=== PATIENT | female | born 1980 | race Caucasian/White ===

== ENCOUNTER 2018-07-14 11:18 | Day surgery (SDC) | payer OTHER, BC ==
[~2018-07-14] VITALS: Ht 170.2 cm; Wt 104.3 kg
[~2018-07-14 11:18] MED LIST: CEPH500 PO; DOXY100; LEVSOD75 PO
[2018-07-14] MEDS ORDERED: DOXY100 PO (12:59)
[2018-07-14] MEDS ORDERED: MELO7.5 (12:59)
--- NOTE | 2018-07-14 15:55 | NUR ---
07/14/18 1554 Ang Marc PT INTO RECLINER. TOLERATING ORAL INTAKE. NO C/O OF PAIN OR NAUSEA AT THIS THIS TIME.
== END 2018-07-14 16:30 | disposition home or self-care (01) ==
LOC: ORSCSDS 11:18
PROVIDERS: Orthopaedic Surgery
PROC: 0SQC4ZZ Repair Right Knee Joint, Percutaneous Endoscopic Approach (ICD-10-PCS; principal; 2018-07-14 13:00)
DX: S83.241A Other tear of medial meniscus, current injury, right knee, initial encounter (principal); M22.41 Chondromalacia patellae, right knee; M94.261 Chondromalacia, right knee; E03.9 Hypothyroidism, unspecified; Z79.899 Other long term (current) drug therapy
CPT/HCPCS: C1713; J0171; J0690; J1100; J1885; J2250; J2405; J2795; J3010; J7120

== ENCOUNTER → 2018-09-07 | Outpatient (CLI) | payer BC ==
[~2018-09-07] MED LIST changes: +DOXY100 PO; +MELO7.5
== END ==
LOC: LAB 19:37 → LAB SHORT 19:37
PROVIDERS: Nurse Practitioner Family
DX: Z01.419 Encounter for gynecological examination (general) (routine) without abnormal findings (principal)
CPT/HCPCS: G0145

== ENCOUNTER → 2019-09-02 | Outpatient (CLI) | payer BC | END | disposition home or self-care (01) | LOC: LAB EV 15:31 → LAB SHORT 15:31 | DX: J02.9 Acute pharyngitis, unspecified (principal) | CPT/HCPCS: 87081 ==

== ENCOUNTER 2020-12-05 07:37 | Day surgery (SDC) | payer OTHER, BC ==
[~2020-12-05] VITALS: Ht 170.2 cm; Wt 107.2 kg
--- NOTE | 2020-12-05 07:54 | NUR ---
12/05/20 0754 Charlotte Duff CHARTED BY INDY WARREN RN
--- NOTE | 2020-12-05 10:16 | NUR ---
12/05/20 1016 ANNALEE VIGIL IN RECLINER W RLEG ELEVATED WITH PILLOW. POLAR PACK ON.
== END 2020-12-05 10:55 | disposition home or self-care (01) ==
LOC: ORSCSDS 07:37
PROVIDERS: Orthopaedic Surgery
PROC: 0SBC4ZZ Excision of Right Knee Joint, Percutaneous Endoscopic Approach (ICD-10-PCS; principal; 2020-12-05 08:45)
DX: S83.241A Other tear of medial meniscus, current injury, right knee, initial encounter (principal); S83.281A Other tear of lateral meniscus, current injury, right knee, initial encounter; M94.261 Chondromalacia, right knee; E03.9 Hypothyroidism, unspecified; E66.01 Morbid (severe) obesity due to excess calories; Z68.37 Body mass index [BMI] 37.0-37.9, adult; Z79.899 Other long term (current) drug therapy
CPT/HCPCS: J0171; J0690; J1100; J1885; J2250; J2405; J2704; J2795; J3010; J7120